=== PATIENT | male | born 1995 | race African-American/Black ===

== ENCOUNTER 2022-11-27 11:34 | Emergency (ER) | payer MEDICAID ==
[~2022-11-27] VITALS: Ht 170.2 cm; Wt 68.0 kg
[2022-11-27 12:49] LABS: HEMOGLOBIN 14.7 g/dL (13.5-17.5)
[2022-11-27] MEDS ORDERED: ACETAMINOPHEN ES 500 MG TABLET PO ONE (13:00)
[2022-11-27 13:42] LABS: CALCIUM, SERUM 9.5 mg/dL (8.5-10.1); POTASSIUM 4.2 mmol/L (3.5-5.1)
[2022-11-27] MEDS ORDERED: ACETAMINOPHEN ES 500 MG TABLET ONE (14:06)
[2022-11-27 15:52] VITALS: BP 129/78; TEMP 98; O2SAT 98
== END 2022-11-27 15:53 | disposition home or self-care (01) ==
LOC: ER 11:44
DX: R51.9 Headache, unspecified (principal); M79.605 Pain in left leg; M54.2 Cervicalgia; V49.9XXA Car occupant (driver) (passenger) injured in unspecified traffic accident, initial encounter; Y93.89 Activity, other specified; Y92.89 Other specified places as the place of occurrence of the external cause; Y99.8 Other external cause status
CPT/HCPCS: 99285; 72125; 73590; 70450; 74177; 85027; 80048; 85730; 36415; 86900; 86850; J7050; Q9967